=== PATIENT | female | born 1970 | race Caucasian/White ===

== ENCOUNTER 2016-09-25 14:12 | Emergency (ER) | payer OTHER | END 2016-09-25 16:26 | disposition home or self-care (01) | DX: J02.9 Acute pharyngitis, unspecified (principal); B97.89 Other viral agents as the cause of diseases classified elsewhere; R04.2 Hemoptysis ==

== ENCOUNTER 2018-03-27 17:27 | Emergency (ER) | payer OTHER ==
[2018-03-27 17:36] VITALS: BP 146/102
--- NOTE | 2018-03-27 17:48 | ED Physician Documentation ---
PD HPI UPPER EXT INJURY - Stated complaint Stated Complaint: LT SHOULDER INJ - Chief complaint Chief Complaint: Ext Problem - History obtained from History obtained from: Patient - History of Present Illness Location: Left (Right-handed woman who was hiking about 4 hours ago and fell with her arm outstretched and caught herself and felt a pop in the upper humerus area and has moderate pain there although declines pain medication. 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 HEENT: Other - Present Medications Home Medications: Ambulatory Orders Medication Instructions Recorded Confirmed Ibuprofen 800 mg PO DAILY 09/25/16 09/25/16 Cholecalciferol (Vitamin D3) 1,000 unit 03/27/18 [Vitamin D3] - Allergies Allergies/Adverse Reactions: Allergies Allergy/AdvReac Type Severity Reaction Status Date / Time No Known Drug Allergies Allergy Verified 09/25/16 14:18 - Social History Does the pt smoke?: No Smoking Status: Never smoker Does the pt drink ETOH?: Yes Does the pt have substance abuse?: No - Immunizations Immunizations are current?: Yes PD ED PE NORMAL - Vitals Vital signs reviewed: Yes - General General: Alert and oriented X 3, No acute distress - Neck Neck: Supple, no meningeal sign, No bony TTP - Extremities Extremities: Other (She has no tenderness over the clavicle or AC joint or the glenohumeral joint. She is tender over the mid and upper humerus and has pain with manipulation of the elbow, although the actual pain is at the upper humerus. There is no deltoid numbness. No tenderness at the elbow, wrist. She is NVI in the hand) - Neuro Neuro: Alert and oriented X 3, Normal speech Results - Vitals Vitals: Vital Signs - 24 hr 03/27/18 17:31 Temperature 37.2 C Heart Rate 77 Respiratory 16 Rate Blood Pressure 146/102 H O2 Saturation 99 Oxygen O2 Source Room air - Rads (name of study) 2v L humerus Radiology: EMP read contemporaneously (normal) PD MEDICAL DECISION MAKING - ED course ED course: She was reexamined a little more aggressively after the x-ray and she could abduct to 90 and internally and externally rotate without pain. She continued to decline pain medication. - Sepsis Event Vital Signs: Vital Signs - 24 hr 03/27/18 17:31 Temperature 37.2 C Heart Rate 77 Respiratory 16 Rate Blood Pressure 146/102 H O2 Saturation 99 Oxygen O2 Source Room air Departure - Departure Disposition: 01 Home, Self Care Clinical Impression: Contusion of left shoulder Qualifiers: Encounter type: initial encounter Qualified Code(s): S40.012A - Contusion of left shoulder, initial encounter Condition: Good Record reviewed to determine appropriate education?: Yes Instructions: ED Contusion Upper Ext Comments: Recheck with your doctor in 1 week if not better, return if worse or if new symptoms develop. Your blood pressure was elevated today on check into the emergency department. This does not mean that you have hypertension, it is a common phenomenon to come to the emergency department and have elevated blood pressure. I recommend that you see your primary care physician within the week to have it rechecked when you are feeling better. Discharge Date/Time: 03/27/18 18:15
--- NOTE | 2018-03-27 18:34 | XRAY Report ---
Procedure Date: 03/27/2018 Accession Number: [id number] / [id number] Procedure: XR - Humerus LT CPT Code: FULL RESULT: EXAM: LEFT HUMERUS RADIOGRAPHY EXAM DATE: 03/27/2018 06:00 PM. CLINICAL HISTORY: Fall. Left arm injury. COMPARISON: None. TECHNIQUE: 2 views. FINDINGS: Bones: Normal. No fractures or bone lesions. Joints: Normal. No effusions or subluxations in the visualized shoulder or elbow joints. Soft Tissues: Unremarkable. IMPRESSION: Normal humerus radiography. RADIA
== END 2018-03-27 18:15 | disposition home or self-care (01) ==
LOC: ED 17:27
DX: S40.012A Contusion of left shoulder, initial encounter (principal); W18.39XA Other fall on same level, initial encounter; Z98.84 Bariatric surgery status; R03.0 Elevated blood-pressure reading, without diagnosis of hypertension
CPT/HCPCS: 99283

== ENCOUNTER 2019-11-07 10:48 | Outpatient (CLI) | payer OTHER | END 2019-11-07 10:49 | disposition critical access hospital (66) | LOC: EMS 10:48 | PROVIDERS: ATTEND Surgery | DX: S99.912A Unspecified injury of left ankle, initial encounter (principal); W01.0XXA Fall on same level from slipping, tripping and stumbling without subsequent striking against object, initial encounter; Y93.02 Activity, running; Y92.838 Other recreation area as the place of occurrence of the external cause | CPT/HCPCS: A0425; A0427 ==

== ENCOUNTER 2019-11-07 11:02 | Emergency (ER) | payer OTHER ==
--- NOTE | 2019-11-07 11:18 | ED Physician Documentation ---
PD HPI LOWER EXT INJURY - Stated complaint Stated Complaint: ANKLE INJURY - Chief complaint Chief Complaint: Trauma Ext - History obtained from History obtained from: Patient - History of Present Illness PD HPI LOW EXT INJURY LOCATION: Left, Ankle Type of injury: Twist (She is walking on uneven ground on trails and had a inversion injury of the ankle with the abrupt pain and deformity. She states it was angled laterally and as she moved it it straightened up a bit. She was unable to bear weight due to the pain. Brought by EMS with a splint in place. She had been given some fentanyl en route which helped with the pain. 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 No: Weakness, Numbness Contributing factors: No: Anticoagulated, Prior ortho surgery Similar symptoms before: Has not had sx before Review of Systems Constitutional: denies: Fever, Chills Nose: denies: Rhinorrhea / runny nose, Congestion Throat: denies: Sore throat Cardiac: denies: Chest pain / pressure Respiratory: denies: Dyspnea, Cough GI: denies: Nausea, Vomiting Skin: denies: Abrasion (s), Laceration (s) Musculoskeletal: reports: Extremity pain Neurologic: denies: Focal weakness, Numbness, Syncope, Altered mental status, Head injury, LOC PD PAST MEDICAL HISTORY - Past Medical History Cardiovascular: None Respiratory: None Endocrine/Autoimmune: None - Past Surgical History Past Surgical History: Yes General: Cholecystectomy, Gastric surgery, 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 HEENT: Other - Present Medications Home Medications: Ambulatory Orders Medication Instructions Recorded Confirmed Ibuprofen 800 mg PO DAILY 09/25/16 09/25/16 Naproxen 500 mg PO BID #20 tablet 11/07/19 Naproxen Sodium [Aleve] 11/07/19 11/07/19 Oxycodone HCl/Acetaminophen 1 each PO TID PRN #20 tablet 11/07/19 [Percocet 5-325 mg Tablet] - Allergies Allergies/Adverse Reactions: Allergies Allergy/AdvReac Type Severity Reaction Status Date / Time No Known Drug Allergies Allergy Verified 09/25/16 14:18 - Social History Does the pt smoke?: No Smoking Status: Never smoker Does the pt drink ETOH?: Yes Does the pt have substance abuse?: No - Immunizations Immunizations are current?: Yes PD ED PE NORMAL - Vitals Vital signs reviewed: Yes - General General: Alert and oriented X 3, No acute distress, Well developed/nourished - HEENT HEENT: Atraumatic, Moist mucous membranes, Pharynx benign (Able to open her mouth widely.) - Neck Neck: Supple, no meningeal sign, No bony TTP - Cardiac Cardiac: RRR, No murmur - Respiratory Respiratory: Clear bilaterally - Abdomen Abdomen: Soft, Non tender - Back Back: No spinal TTP - Derm Derm: Normal color, Warm and dry - Extremities Extremities: Other (Left ankle shows moderate swelling with some lateral mild displacement consistent with fracture dislocation. She is tender at both malleoli medial and lateral. There is good color and capillary fill in the toes. There is normal sensation and toe movement. The other extremities are without any pain or tenderness. The knee and hip are nontender.) - Neuro Neuro: Alert and oriented X 3, No motor deficit, No sensory deficit, Normal speech Eye Opening: Spontaneous Motor: Obeys Commands Verbal: Oriented GCS Score: 15 - Psych Psych: Normal mood Results - Vitals Vitals: Vital Signs - 24 hr 11/07/19 11/07/19 11/07/19 11:08 12:11 13:09 Temperature 36.6 C Heart Rate 76 72 81 Respiratory 18 18 18 Rate Blood Pressure 124/88 H 130/72 149/97 H O2 Saturation 95 100 95 11/07/19 11/07/19 11/07/19 13:14 13:18 13:20 Temperature Heart Rate 72 69 87 Respiratory 14 12 16 Rate Blood Pressure 139/87 H 187/92 H O2 Saturation 90 L 96 11/07/19 11/07/19 13:24 14:25 Temperature Heart Rate 71 74 Respiratory 16 16 Rate Blood Pressure 141/73 H 143/93 H O2 Saturation 98 97 Oxygen O2 Source Room air - Rads (name of study) left ankle Radiology: Prelim report reviewed, EMP read contemporaneously (Bilobed malleolar fracture with lateral displacement.), See rad report Procedures - Splint (location) right ankle Splint applied by: Physician Type of splint: Fiberglass, Posterior, Stirrup Other: Patient tolerated well, No complications, Neurovascular intact, Good alignment, Crutches provided - Procedural sedation Sedation prep: Informed consent, Time out completed, Last meal (several hours ago), PE performed, AHA 1 - healthy Sedation medications: dilaudid, propofol Patient status during sedation: Responds to tactile, Vitals remained stable, Maintained airway, Recovered uneventfully. No: Complications Sedation recovery: Recovered uneventfully PD MEDICAL DECISION MAKING - ED course Complexity details: considered differential, d/w patient, d/w cycle consultant (Dr. Medel - Who says to splint the ankle in best anatomic position and will follow-up in the office once swelling is down.) Departure - Departure Disposition: Home, Self Care Clinical Impression: Accidental fall Qualifiers: Encounter type: initial encounter Qualified Code(s): W19.XXXA - Unspecified fall, initial encounter Bimalleolar ankle fracture Qualifiers: Encounter type: initial encounter Fracture type: closed Laterality: left Qualified Code(s): S82.842A - Displaced bimalleolar fracture of left lower leg, initial encounter for closed fracture Condition: Stable Record reviewed to determine appropriate education?: Yes Instructions: ED Fx Ankle General Follow-Up: Abdirizak Medel MD [Provider Admit Priv/Credential] - Prescriptions: Naproxen 500 mg PO BID #20 tablet Oxycodone HCl/Acetaminophen [Percocet 5-325 mg Tablet] 1 each PO TID PRN #20 tablet PRN Reason: pain Comments: Keep the ankle splinted and rest ice and elevate it as often as you can to reduce the swelling. Crutches for nonweightbearing. Consider also a knee scooter as an alternative. Use anti-inflammatory such as naproxen twice daily. Add Tylenol 3 or 4 times a day or oxycodone if needed for worse pain. I did not dissipate the worst pain over the first several days with the swelling and initial inflammation. Call the orthopedic office for follow-up appointment for later this week or early next week. This has a high likelihood of needing surgery but that is typically done after the swelling goes down. Forms: Activity restrictions Discharge Date/Time: 11/07/19 14:12
[2019-11-07] MEDS ORDERED: HYDROmorphone 1 MG/ML SYRINGE IVP STA ×2 (11:27→12:11)
[2019-11-07] MEDS ORDERED: KETOROLAC 30 MG/ML VIAL IVP STA (11:27)
--- NOTE | 2019-11-07 11:46 | XRAY Report ---
Reason: ankle inj Procedure Date: 11/07/2019 Accession Number: [id number] / [id number] Procedure: XR - Ankle 3 View LT CPT Code: Final Report FULL RESULT: EXAM: LEFT ANKLE RADIOGRAPHY 3 VIEWS EXAM DATE: 11/07/2019. CLINICAL HISTORY: Ankle injury, slipped and rolled the ankle. COMPARISON: None. TECHNIQUE: AP, oblique and lateral views. FINDINGS: Bones: Oblique fracture at the base of the medial malleolus and an oblique fracture through the lateral malleolus. Both distal fracture components are displaced and angled lateral. 3 mm posterior plantar calcaneal spur. Joints: Lateral talar subluxation, about half its width. Soft Tissues: Diffuse swelling around the ankle. Anterior radiodensities may be skin nevi or foreign material in the skin or subcutaneous tissues. IMPRESSION: Bimalleolar fracture subluxation of the left ankle. Regular radiodensities in the soft tissues of the anterior distal lower leg may be a nevi, or foreign material in the skin and subcutaneous soft tissues. RADIA
[2019-11-07] MEDS ORDERED: PROPOFOL 200 MG/20 ML VIAL IVP STA (12:55)
[2019-11-07] MEDS ORDERED: SODIUM CHLORIDE 0.9% 1,000 ML IV ONE (12:55)
--- NOTE | 2019-11-07 13:56 | XRAY Report ---
Reason: post reduction Procedure Date: 11/07/2019 Accession Number: [id number] / [id number] Procedure: XR - Ankle 2 View LT CPT Code: Final Report FULL RESULT: EXAM: LEFT ANKLE RADIOGRAPHY 2 VIEWS EXAM DATE: 11/07/2019. CLINICAL HISTORY: Bimalleolar fracture-subluxation, post reduction. COMPARISON: Earlier the same day. TECHNIQUE: AP and lateral views taken through a cast. FINDINGS: Improved alignment of the medial and lateral malleolar fractures, though the lateral malleolar disk component remains displaced lateral 5 mm and the medial component about 3 mm. The talus is subluxed lateral 8 mm, previously 16 mm. Other findings are unchanged. IMPRESSION: Lateral displacement of the medial and lateral malleolar fractures as decreased, and the lateral subluxation of the talus has decreased, since the earlier examination. RADIA
[2019-11-07 14:26] VITALS: BP 143/93
== END 2019-11-07 14:12 | disposition home or self-care (01) ==
LOC: EDUNIT# → ED 11:02
DX: S82.842A Displaced bimalleolar fracture of left lower leg, initial encounter for closed fracture (principal); X50.1XXA Overexertion from prolonged static or awkward postures, initial encounter; Y93.01 Activity, walking, marching and hiking; Y92.830 Public park as the place of occurrence of the external cause; M77.32 Calcaneal spur, left foot
CPT/HCPCS: 29515; 73600; 73610; 96361; 96374; 99152; 99284; 99285; J1170; 94770

== ENCOUNTER 2019-11-14 11:38 | Day surgery (SDC) | payer OTHER ==
[~2019-11-14 11:38] MED LIST: BUPIVACAINE 0.25% PF 30 ML VIAL ONE
[2019-11-14] MEDS ORDERED: CEFAZOLIN SODIUM IN 0.9 % NACL 2 GM/100 ML BAG IV ONE (12:07)
--- NOTE | 2019-11-14 12:12 | ANESTHESIA ---
Pre-Anesthesia VS, & Labs - Diagnosis left ankle fracture - Procedure left ankle open reduction internal fixation Vital Signs: Temp Pulse Resp BP Pulse Ox 36.9 C 65 14 149/94 H 98 11/14/19 11:45 11/14/19 11:45 11/14/19 11:45 11/14/19 11:45 11/14/19 11:45 Height 5 ft 6 in Weight (kg) 106.14 kg Body Mass Index 38.7 - NPO >8 hours - Is Patient ?: No Home Medications and Allergies Ibuprofen 800 mg PO DAILY 09/25/16 Naproxen Sodium [Aleve] 11/07/19 Allergies/Adverse Reactions: Allergies Allergy/AdvReac Type Severity Reaction Status Date / Time No Known Drug Allergies Allergy Verified 11/11/19 12:17 Anes History & Medical History - Anesthetic History Anesthesia Complications: reports: No previous complications - Medical History Cardiovascular: reports: None Pulmonary: reports: None Urinary: reports: None Musculoskeletal: reports: Other Endocrine/Autoimmune: reports: None Blood Disorders: reports: Anemia Skin: reports: None Smoking Status: Never smoker - Surgical History General: Gastric surgery Eyes Ears Nose Throat (EENT): Other Gynecologic: Hysterectomy Orthopedic: Other Exam General: Alert Dental: WNL Mouth Opening: Greater than 4 Fingerbreadths Neck Mobility: Normal Mallampati classification: II Thyromental Distance: greater than 6 cm Respiratory: Lungs clear Cardiovascular: Regular rate, Normal S1, Normal S2 Plan Anesthesia Type: General Consent for Procedure(s) Verified and Reviewed: Yes Code Status: Attempt Resuscitation ASA classification: 2-Mild systemic disease Is this case an emergency?: No
[2019-11-14] MEDS ORDERED: LACTATED RINGERS 1,000 ML IV ONE ×4 (12:15→17:19)
[2019-11-14] MEDS ORDERED: fentaNYL 100 MCG/2 ML VIAL IVP ONE (12:54)
[2019-11-14] MEDS ORDERED: MIDAZOLAM 2 MG/2 ML VIAL IVP ONE (12:54)
[2019-11-14] MEDS ORDERED: ACETAMINOPHEN 1,000 MG/100 ML 100 ML IV ONE (12:54)
[2019-11-14] MEDS ORDERED: ROCURONIUM 50 MG/5 ML VIAL IVP ONE (12:54)
[2019-11-14] MEDS ORDERED: fentaNYL 250 MCG/5 ML VIAL IVP ONE (12:54)
[2019-11-14] MEDS ORDERED: LIDOCAINE-MPF 2% 5 ML VIAL IM ONE (12:54)
[2019-11-14] MEDS ORDERED: PROPOFOL 200 MG/20 ML VIAL IVP ONE (12:54)
[2019-11-14] MEDS ORDERED: NEOSTIGMINE 1 MG/1 ML 10 ML MDV IVP ONE (12:54)
[2019-11-14] MEDS ORDERED: KETOROLAC 30 MG/ML VIAL IVP ONE (12:54)
[2019-11-14] MEDS ORDERED: GLYCOPYRROLATE 1 MG/5 ML VIAL IVP ONE (12:54)
[2019-11-14] MEDS ORDERED: DEXAMETHASONE 4 MG/ML VIAL IVP ONE (12:54)
[2019-11-14] MEDS ORDERED: ONDANSETRON 4 MG/2 ML VIAL IVP ONE (12:54)
[2019-11-14] MEDS ORDERED: BUPIVACAINE 0.25% PF 30 ML VIAL SUBQ ONE ×2 (13:02→16:12)
--- NOTE | 2019-11-14 16:08 | XRAY Report ---
Reason: ortho procedure ORIF ankle Procedure Date: 11/14/2019 Accession Number: [id number] / [id number] Procedure: FL - OR C-Arm Procedure CPT Code: Final Report FULL RESULT: EXAM: FLUOROSCOPIC GUIDANCE EXAM DATE: 11/14/2019 03:46 PM. CLINICAL HISTORY: ORIF left ankle. COMPARISON: ANKLE 2 VIEW LT 11/07/2019 1:25 PM. FINDINGS IMPRESSION: Fluoroscopic guidance provided for left ankle ORIF. Total fluoroscopy time: 0.9 minute. Number of images: 11. RADIA
[2019-11-14] MEDS ORDERED: oxyCODONE 5 MG TABLET PO PRN (16:40)
[2019-11-14] MEDS ORDERED: ONDANSETRON 4 MG/2 ML VIAL IVP PRN (16:40)
[2019-11-14] MEDS: HYDROmorphone 1 MG/ML CARPUJECT ONE ×2 (16:51→16:56)
--- NOTE | 2019-11-14 16:51 | OPERATIVE REPORT ---
Operative Report - Other Other Information/Narrative: Date of Surgery: 14 November 2019 Pre-Op Diagnosis: Left ankle trimalleolar fracture Procedure: Left open reduction internal fixation of lateral malleolus and medial malleolus Postop Diagnosis: Same Primary Surgeon: Sarthak Pierre Secondary Surgeon: None Complications: None Tourniquet Time: 122 minutes EBL: 50 cc Implants: Synthes one third tubular plate x2 with appropriate plate screws 3.5 mm lag screw 2.0 millimeter screw Findings: Oblique distal fibular fracture was reduced anatomically and fixed, a Wagstaffe fragment was appreciated and reduced and fixed. Medial malleolus fracture had minimal comminution and was of a vertical variety and therefore fixed with a contoured antiglide plate with a lag screw through the plate Postoperative Protocol: Same day surgery discharge Splint nonweightbearing until 2 weeks At 2 weeks the splint will be removed, x-rays out of plaster, transition to CAM boot for range of motion, continue nonweightbearing at 6 weeks she may be able to gradually bear weight with the boot on At 12 weeks she can wean from the boot and advance activities as tolerated Indication For Surgery: 49-year-old female sustained a trimalleolar ankle fracture dislocation while running on 06 November. She was reduced under sedation and placed into a splint and then presented to clinic. At her first clinic evaluation there was a blister medially and the ankle was too swollen for surgery so she was scheduled to today. The risks, benefits, and alternatives were discussed. Risks include pain, bleeding, infection, damage to nearby structures, numbness, lack of symptom relief, implant complications, nonunion, need for further surgery, DVT, PE, stroke, and . Written consent was obtained. Procedure in Detail: The patient was met in the pre-operative hold area on the day of the procedure. The operative extremity was signed and questions were answered. The patient was brought to the operating room and a general anesthetic was administered. Supine position was used and all bony prominences were padded. X-rays were taken of the contralateral limb for comparison later. Standard prepping and draping was performed. A time out confirmed patient identification, laterality, procedure, allergies, antibiotics, and images. An Esmarch was used to exsanguinate the limb and the tourniquet was elevated to 250 mmHg. The fibula fracture was approached through a direct lateral incision blunt dissection was carried out proximally looking for the superficial peroneal nerve but it was not seen. Sharp dissection was used distally down to the lateral malleolus. The fracture was identified and gapped open. All hematoma, early callus, and blocks to reduction were removed and to include significant periosteum that had flipped into the fracture site. The lateral portion of the ankle joint was visible and there was no osteochondral lesion of the talus. The fracture was reduced anatomically and held with a 2 cjnfu-zk-sekfr clamps. A 3.5 mm lag screw was placed and this held the reduction nicely. A laterally placed one third tubular plate was then applied and appropriately length plate screws were inserted. There was a small Lor fragment anteriorly just distal to the lag screw and this was brought back into place and screwed using a 1.6 mm K wire and replacing that with a 2.0 millimeter screw. The Lor piece was held in nicely with this. I then moved to the medial side and made a curvilinear medial incision just through the skin. Branches of the saphenous vein were identified and protected throughout the case. The fracture was identified and all blocks to reduction were removed. The medial dome of the talus did not have any osteochondral lesions. The fracture pattern on the medial side was quite vertical so I selected a plate fixation technique. The reduction was made and held with a nuuah-mf-wvcgo reduction clamp as well as a single K wire anteriorly. The posterior portion of the fracture seemed to hinge around the fibro-osseous tunnel of the posterior tibial tendon and this helped to maintain reduction. A one third tubular plate was then bent appropriately and applied with a screw in the antiglide position to start with. I then placed one screw distal to that in lag fashion perpendicular to the fracture line and this compressed the fracture nicely. Additional plate screws were placed proximally. The fracture was very stable to my manual attempt to dislodge it. Stress external rotation and cotton test were performed to evaluate the stability of the syndesmosis and the syndesmosis was found to be intact. Final images were taken and the wound was then irrigated copiously. Closure was then conducted using 0 Vicryl in a efehyf-ga-pyxxk fashion for the deep tissue layer followed 2-0 vicryl in buried interrupted fashion for the deep dermal layer. The skin was then closed using 3-0 nylon in a running mattress suture fashion. 20 mL's of 0.25% Marcaine was injected into the periwound soft tissue . The wounds were then dressed with Xeroform, plain 4x4 gauze, and wrapped in sterile Webril. They were then placed in a L and U splint at neutral dorsiflexion. She was awakened from general anesthesia without complication and brought to the Postanesthesia Care Unit for further Recovery.
[2019-11-14] MEDS: fentaNYL 100 MCG/2 ML VIAL ONE ×2 (17:03→17:08)
--- NOTE | 2019-11-14 17:54 | ANESTHESIA PROCEDURE NOTE ---
Diagnosis: ORIF left ankle Procedure: Left popliteal block Consent for Procedure(s) Verified and Reviewed: Yes Height and Weight: Height 5 ft 6 in Weight (kg) 106.14 kg Body Mass Index 38.7 Vital Signs: Temp Pulse Resp BP Pulse Ox 37.2 C 69 15 150/89 H 97 11/14/19 17:41 11/14/19 17:41 11/14/19 17:41 11/14/19 17:41 11/14/19 17:41 Allergies No Known Drug Allergies Allergy (Verified 11/11/19 12:17) Requesting Provider: Ignacio Location: Left ASA classification: 2-Mild systemic disease Is this case an emergency?: No Anes. Monitoring and Equipment: Non-invasive BP, Pulse oximetery, Sterile prep and drape Anes. Procedure Start Time: 17:11 Anes. Procedure Stop Time: 17:39 Procedure Notes: Block placed for post op pain control per surgeon request. Patient rates pain 8/10 in the PACU and rescue popliteal block was offered. After time out, the patient was turned lateral and left posterior thigh was prepped with chloroprep. A 22G stimiplex needle was used to locate the sciatic nerve superior to the popliteal fossa. Foot twitch was obtained at 0.5 mA and a total of 20 ml of 0.5% ropivicaine with 4mg decadron was injected. Patient reported good pain relief and rated pain 3/10. No paresthesia was elicited. She tolerated the procedure well.
[2019-11-14 19:28] VITALS: BP 131/80
== END 2019-11-14 19:58 | disposition home or self-care (01) ==
LOC: SDS 11:38 → MS2 18:00 → SDS 19:58
PROVIDERS: ATTEND Orthopaedic Surgery
DX: S82.852A Displaced trimalleolar fracture of left lower leg, initial encounter for closed fracture (principal)